=== PATIENT | male | born 1990 ===

== ENCOUNTER 2017-08-17 21:15 | Emergency (ER) | payer SELFPAY ==
[2017-08-17 21:44] VITALS: BP 135/79; PULSE 86; RESP 16; TEMP 99.1; O2SAT 99
[2017-08-17] MEDS ORDERED: Tdap Vaccine 0.5 ml Vial (10-64 yrs) IM ONE ×2 (21:53→22:03)
[2017-08-17] MEDS ORDERED: Bacitracin 500 Units/gm Oint Foilpak UD ONE (22:12)
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
== END 2017-08-17 22:42 | disposition home or self-care (01) ==
LOC: C.ER 21:15
DX: T23.201A Burn of second degree of right hand, unspecified site, initial encounter (principal); X19.XXXA Contact with other heat and hot substances, initial encounter; Y92.89 Other specified places as the place of occurrence of the external cause; Z23 Encounter for immunization